=== PATIENT | male | born 1980 | race Caucasian/White ===

== ENCOUNTER 2020-12-04 20:09 | Emergency (ER) | payer MEDICAID ==
[~2020-12-04] VITALS: Ht 175.3 cm; Wt 87.5 kg
[2020-12-04] MEDS ORDERED: metformin (20:43)
[2020-12-04] MEDS ORDERED: glipizide (20:44)
[2020-12-04] MEDS ORDERED: zoloft (20:45)
[2020-12-04] MEDS ORDERED: nexium (20:46)
[2020-12-04] MEDS ORDERED: benazepril (20:47)
[2020-12-04] MEDS ORDERED: ACETAMINOPHEN 325MG TABLET PO STA (22:12)
[2020-12-04] MEDS ORDERED: SODIUM CHLORIDE 0.9% 1,000 ML IV ONE (22:15)
[2020-12-04 22:46] LABS: BASOPHILS % 0.5 % (0.0-2.0); EOSINOPHILS % 0.6 % (0.0-5.0); HEMATOCRIT. 46.2 % (42.0-52.0); HEMOGLOBIN. 16.5 g/dL (14.0-18.0); LYMPHOCYTES % 32.1 % (20.0-50.0); MEAN CORPUSCULAR HEMOGLOBIN 30.2 pg (28.0-32.0); MEAN CORPUSCULAR VOLUME 84.9 fL (80.0-94.0); MEAN PLATELET VOLUME 9.1 fl (7.4-10.4); MONOCYTES % 6.9 % (2.0-8.0); NEUTROPHILS % 59.9 % (40.0-76.0); PLATELET 233 x1000/uL (130-400); RED BLOOD CELL COUNT 5.44 mill/uL (4.7-6.1); RED CELL DISTRIBUTION WIDTH 12.9 % (11.6-14.6)
[2020-12-04 22:53] LABS: CHLORIDE 104 mEq/L (98-107)
[2020-12-04] MEDS ORDERED: KETOROLAC 15MG/ML VIAL IV ONE (23:30)
[2020-12-04] MEDS ORDERED: GLIP10TA10 MT (23:51)
[2020-12-04] MEDS ORDERED: METF-416 MT (23:51)
[2020-12-05 00:22] VITALS: BP 134/79
== END 2020-12-05 00:48 | disposition home or self-care (01) ==
LOC: ER 20:09
DX: B34.9 Viral infection, unspecified (principal); E11.65 Type 2 diabetes mellitus with hyperglycemia; R11.2 Nausea with vomiting, unspecified; I10 Essential (primary) hypertension; Z20.822 Contact with and (suspected) exposure to COVID-19; Z98.890 Other specified postprocedural states
CPT/HCPCS: 36415; 71045; 80053; 85025; 93005; 96361; 96374; 99285; C9803; J1885; J7030; U0003; U0005